=== PATIENT | male | born 1965 | race Two or more races ===

== ENCOUNTER 2020-10-14 13:48 | Outpatient (CLI) | payer SELFPAY | END 2020-10-14 23:59 | disposition home or self-care (01) | LOC: MSC 13:48 | PROVIDERS: ATTEND Anesthesiology | DX: G89.29 Other chronic pain (principal); M54.2 Cervicalgia; Z79.1 Long term (current) use of non-steroidal anti-inflammatories (NSAID) ==

== ENCOUNTER 2022-10-09 19:05 | Emergency (ER) | payer OTHER ==
--- NOTE | 2022-10-09 20:37 | NUR ---
CALLED TO TRIAGE [id number]
--- NOTE | 2022-10-09 21:00 | NUR ---
CALLED TO [facility]BE[facility]
--- NOTE | 2022-10-09 21:17 | NUR ---
CALLED TO TRIAGE NAX3
== END 2022-10-09 21:20 | disposition left against medical advice (07) ==
LOC: ER 19:17
DX: Z53.21 Procedure and treatment not carried out due to patient leaving prior to being seen by health care provider (principal)

== ENCOUNTER 2022-11-06 02:07 | Emergency (ER) | payer OTHER ==
[~2022-11-06] VITALS: Ht 185.4 cm; Wt 86.2 kg
--- NOTE | 2022-11-06 02:19 | NUR ---
BIBS C/O GENITAL PAIN [id number] P/S 12/13, "DOCTOR SAID I HAVE ENLARGED PROSTATE
[2022-11-06] MEDS ORDERED: TAMSULOSIN 0.4 MG CAP.SR.24H PO ONE (02:30)
[2022-11-06] MEDS ORDERED: IBUPROFEN 600 MG TABLET PO ONE (02:30)
[2022-11-06] MEDS ORDERED: IBUPROFEN 600 MG TABLET ONE (02:33)
[2022-11-06] MEDS ORDERED: TAMSULOSIN 0.4 MG CAP.SR.24H ONE (02:34)
--- NOTE | 2022-11-06 02:38 | NUR ---
DR. BOWEN AT BEDSIDE
--- NOTE | 2022-11-06 02:41 | NUR ---
URINE COLLECTED SENT TO LAB
[2022-11-06 02:55] LABS: BILIRUBIN,URINE NEGATIVE (NEGATIVE); COLOR,URINE YELLOW (YELLOW); LEUKOCYTE ESTERASE ,URINE NEGATIVE (NEGATIVE); NITRITE, URINE NEGATIVE (NEGATIVE); PH,URINE 6.5 (5.0-8.0); PROTEIN,URINE NEGATIVE (NEGATIVE); UGLUCOSE NEGATIVE (NEGATIVE); UROBILINOGEN,URINE 0.2 EU/dL (0.2)
[2022-11-06] MEDS ORDERED: TAMS-12 PO (03:03)
[2022-11-06 04:26] VITALS: BP 119/89
== END 2022-11-06 04:26 | disposition home or self-care (01) ==
LOC: ER 02:15
DX: N40.0 Benign prostatic hyperplasia without lower urinary tract symptoms (principal); Z90.49 Acquired absence of other specified parts of digestive tract